=== PATIENT | male | born 1960 | race Caucasian/White ===

== ENCOUNTER 2019-12-17 00:49 | Outpatient (CLI) | payer BC, SELFPAY ==
[2019-12-18 18:47] LABS: SARS-CoV-2 RNA PCR Negative
== END 2019-12-17 00:50 | disposition home or self-care (01) ==
LOC: ANHCOVIDDT 00:49
PROVIDERS: PCP Family Medicine; Visit Provider Internal Medicine Gastroenterology
DX: Z01.812 Encounter for preprocedural laboratory examination (principal); Z11.59 Encounter for screening for other viral diseases
CPT/HCPCS: 87635; C9803; U0003

== ENCOUNTER 2019-12-20 00:40 | Day surgery (SDC) | payer BC, SELFPAY ==
[2019-12-09 15:18] VITALS: BMI 31.1
[2019-12-20 06:55] VITALS: BP 161/91; PULSE 67; RESP 18; TEMP 36.3; O2SAT 97
--- NOTE | 2019-12-20 07:07 | WPDANESEPPF ---
Anes - Initial Pre Proc Eval Procedure: Operation Date: 12/20/19 08:00 Proposed Procedures p Screening Colonoscopy - Efrain Ballard MD Date/Time: 12/20/19 07:07 Surgeon: Efrain Ballard MD Pre Op Diagnosis: neoplasm screening, family hx colon CA Patient Data Age: 59 Gender: M Height: 1.88 m Weight: 110 kg Allergies Allergy/AdvReac Type Severity Reaction Status Date / Time No Known Allergies Allergy Verified 12/20/19 06:56 Home Medications Medication Instructions Recorded Confirmed Type lisinopril 20 mg PO DAILY 12/09/19 12/09/19 History wlhkkyzbretx-njm-pwwx-FA-vit K 1 tablet PO DAILY 12/09/19 12/09/19 History [Adults Multivitamin] Patient hx anesthesia problems: none Family hx anesthesia problems: none PMFSH Past Medical History Medical History (Updated 12/20/19 @ 07:08 by Emiliano De Luna MD) HTN (hypertension) Obesity Family History Family History (Updated 12/25/17 @ 08:32 by DOCTOR UNKNOWN) Father Carcinoma of colon Mother Family history of malignant neoplasm of breast in first degree relative Social History Social History Smoking status: Never smoker Alcohol intake: current Anes - Eval Final PreProcedure Day of Procedure 12/20/19 07:07 Patient weight: obese Heart: regular rate and rhythm Lungs: clear to auscultation and normal air movement Airway: Mallampati scale class II Neurological: alert and oriented Last oral intake: >/= 8 hours ASA classification: II Emergent: no Anesthetic plan: proceed Anesthesia type and monitoring: general GIVS Informed Consent: The patient's anesthetic plan and its attendant risks and benefits were discussed with the patient/family/POA. Questions were solicited and answers provided to the satisfaction of the patient/family/POA.
[2019-12-20] MEDS: LACTATED RINGERS 1,000 ML 150 ML IV CONT (07:22)
--- NOTE | 2019-12-20 07:48 | WPDGICN ---
Assessment and Plan Assessment and plan (1) Family history of colon cancer in father: Code(s): Z80.0 - Family history of malignant neoplasm of digestive organs Status: Acute Assessment and Plan: Patient's father has had colon cancer. Plan is for patient to have surveillance colonoscopy now and perhaps a 5 year intervals in the future. High-fiber diet advised. GI Consult Note Consult date/time: 12/20/19 07:48 HPI: Abbe Cruz is a 59 year old male seen in evaluation at the request of Dr Daren Sin. Patient presents for screening colonoscopy. Patient reports that his own weight appetite bowel movements are normal. He denies abdominal pain. He has no blood in his stools. Family history is significant that his father had colon cancer. [facility] Past Medical History Medical History HTN (hypertension) Obesity Family History Family History Father Carcinoma of colon Mother Family history of malignant neoplasm of breast in first degree relative Social History Social History Smoking status: Never smoker Alcohol intake: current Meds Home Medications and Allergies Home Medications Medication Instructions Recorded Confirmed Type lisinopril 20 mg PO DAILY 12/09/19 12/20/19 History kktcnaqeuwsc-sjs-khqv-FA-vit K 1 tablet PO DAILY 12/09/19 12/20/19 History [Adults Multivitamin] Allergies Allergy/AdvReac Type Severity Reaction Status Date / Time No Known Allergies Allergy Verified 12/20/19 07:14 Vital Signs Vital Signs - 24 hr 12/20/19 06:55 Temperature 97.3 F L Pulse Rate 67 Respiratory Rate 18 Blood Pressure 161/91 H Pulse Oximetry 97 Exam Narrative: Exam Narrative: Physical exam reveals patient to be alert. Vital signs stable. HEENT exam unremarkable. Lungs are clear to auscultation and percussion. Heart is without murmur or extra sounds. Abdominal exam bowel sounds are present soft nontender with no hepatosplenomegaly. Digital external rectal exam normal.
[2019-12-20 08:14] VITALS: BP 132/85; PULSE 68; RESP 22; O2SAT 97
[2019-12-20 08:24] VITALS: BP 138/92; PULSE 69; RESP 20; O2SAT 96
[2019-12-20 08:34] VITALS: BP 131/86; PULSE 58; RESP 16; O2SAT 96
== END 2019-12-20 08:49 | disposition home or self-care (01) ==
PROVIDERS: PCP Family Medicine; Visit Provider Internal Medicine Gastroenterology
PROC: 0DJD8ZZ Inspection of Lower Intestinal Tract, Via Natural or Artificial Opening Endoscopic (ICD-10-PCS; CPT 45378; principal; 2019-12-20 08:00)
DX: Z12.11 Encounter for screening for malignant neoplasm of colon (principal); K57.30 Diverticulosis of large intestine without perforation or abscess without bleeding; K64.8 Other hemorrhoids; Z80.0 Family history of malignant neoplasm of digestive organs; I10 Essential (primary) hypertension; E66.9 Obesity, unspecified; Z68.31 Body mass index [BMI] 31.0-31.9, adult
CPT/HCPCS: 45378; J2704; J7120

== ENCOUNTER 2022-04-08 08:54 | Outpatient (CLI) | payer BC, SELFPAY ==
--- NOTE | 2022-04-08 09:01 | ECG_ITS ---
Measurements Intervals [place] Rate: 61 P: 16 MA: 195 QRS: -17 QRSD: 81 T: 4 QT: 398 QTc: 402 Interpretive Statements SINUS RHYTHM LEFT VENTRICULAR HYPERTROPHY MINIMAL Q WAVES- HIGH LATERAL LEADS BORDERLINE T WAVE ABNORMALITY- INFERIOR LEADS BASELINE ARTIFACT- I, II, III, AVR, AVL, AVF, V3-V6 BORDERLINE ECG NO PREVIOUS ECG AVAILABLE FOR COMPARISON Electronically Signed On 04-08-2022 9:34:47 [employer] by Dylan Chaves D.O.
== END 2022-04-08 08:55 | disposition home or self-care (01) ==
LOC: ANHSURGERY 08:59
PROVIDERS: PCP Family Medicine; Visit Provider Surgery
DX: K40.90 Unilateral inguinal hernia, without obstruction or gangrene, not specified as recurrent (principal); I10 Essential (primary) hypertension; Z01.818 Encounter for other preprocedural examination; R94.31 Abnormal electrocardiogram [ECG] [EKG]
CPT/HCPCS: 36415; 86850; 86900; 86901; 93005

== ENCOUNTER 2022-04-10 01:18 | Day surgery (SDC) | payer BC, SELFPAY ==
[2022-04-05 10:04] VITALS: BMI 31.5
--- NOTE | 2022-04-05 10:10 | PC.NURSE ---
Report to the Outpatient Waiting Room, entrance under the green pavilion located off [facility], at time 7:30 on date 04/10/22. Planned Procedure Time: 9:30. Time changes happen often and if your time is changed the preop area will call you the afternoon before. - You and your visitor will be asked to self-screen and do not enter if you have any COVID symptoms. - We encourage only one visitor and NO visitors under age 16 are allowed at this time. Your visitor will receive communication by the phone number that is given day of service. - The patient visitor is requested to social distance or may leave the building when not with patient due to restrictions. - A mask is OPTIONAL within the hospital. Patients may have clear liquids (water, carbonated beverages, clear teas, apple juice) until 3 hours prior to surgery (6:30) with a maximum of 20 ounces. - No food from midnight until time of surgery Take the following medications with a SIP of water the morning of surgery: NONE Medications to discontinue per physician: VITAMINS Date to take last dose: 04/06/22 Please no make-up, nail comoran, hairspray, perfume, deodorant, or body powder the day of surgery. No jewelry (including any body piercings) or valuables the day of surgery, leave them at home. Please take a shower or bath the night before, or the morning of, surgery with an antibacterial soap (HIBICLENS). Wear comfortable, loose fitting clothing. - Jewelry must be removed prior to entering the operating room. Rings and piercings that are not removed may be cut off. - The hospital will not accept responsibility for valuables. - Please leave all valuables, including medications, at home the day of surgery. If you are going home after surgery, a licensed coach tour driver must drive you home. - NO public transportation without another adult. - We recommend that an adult stay with you for 24 hours following discharge. - We also recommend that you do not drive, make important decision, drink alcoholic beverages, or take any drugs that were not prescribed by your health care provider for at least 24 hours after your discharge time. Follow any additional instructions given to you from your surgeon. If you or anyone in your household have experienced Covid symptoms in the past week, please notify your surgeon or the nurse liaison at the phone number below for possible testing. Telephone instructions given to PT - BRE ALVAREZ and asked if any additional questions and then verbalized understanding. Patient advised to call surgeon office or pre surgery nurse liaison [phone] if any additional questions.
[2022-04-10] VITALS (11 sets, daily range): BP systolic 114–139; BP diastolic 66–94; PULSE 58–79; RESP 11–17; TEMP 36.7–37.1; O2SAT 92–99
[2022-04-10] MEDS: ceFAZolin 2 GM/D5W 50 ML 2 GM/50 ML BAG IVPB (07:24)
[2022-04-10] MEDS: ACETAMINOPHEN 500 MG TABLET 1000 MG PO (07:59)
[2022-04-10] MEDS: LACTATED RINGERS 1,000 ML 30 ML IV CONT ×2 (08:10→11:06)
--- NOTE | 2022-04-10 08:46 | WPDHPUPDATE1 ---
History and Physical Update Update Date/Time: 04/10/22 08:46 History and Physical has been reviewed, including an updated exam of the patient. There are NO changes in the patient's condition. Risks, benefits, and alternatives have been discussed and questions answered. Patient agrees to proceed with procedure.
--- NOTE | 2022-04-10 08:56 | P.PNAN_ITS ---
Anes - Initial Pre Proc Eval Procedure: Operation Date: 04/10/22 09:30 Proposed Procedures p Laparoscopic Left Inguinal Hernia Repair with Mesh, Davinci Assisted - Sina Hernandez DO Date/Time: 04/10/22 08:56 Surgeon: Sina Hernandez DO Pre Op Diagnosis: Lt Ing Hernia Patient Data Age: 61 Gender: M Height: 1.88 m Weight: 111.2 kg Last Vital Signs Temp 98.0 F 04/10/22 08:20 Pulse 64 04/10/22 08:20 Resp 16 04/10/22 08:20 BP 118/94 H 04/10/22 08:20 Pulse Ox 94 04/10/22 08:20 O2 Del Method Room Air 04/10/22 08:20 Allergies Allergy/AdvReac Type Severity Reaction Status Date / Time No Known Allergies Allergy Verified 04/10/22 07:43 Home Medications Medication Instructions Recorded Confirmed Type lisinopril 20 mg tablet 20 mg PO DAILY 12/09/19 04/10/22 History multivit with minerals-iron 18 1 tablet PO DAILY 12/09/19 04/10/22 History mg-folic ac 400 mcg-vit K 25 mcg tablet (Adults Multivitamin) Patient hx anesthesia problems: none Family hx anesthesia problems: none Results Review: All pre-operative results and documents have been reviewed as part of the pre- operative evaluation. [facility] Past Medical History Medical History High cholesterol HTN (hypertension) Obesity Surgical History Surgical History H/O shoulder surgery Family History Family History Father Carcinoma of colon Mother Breast cancer Social History Social History Smoking status: Never smoker Alcohol intake: current Drinks per week: 2 Substance use: current Substance use type: marijuana Living arrangements: alone Spiritual care concerns: No Anes - Eval Final PreProcedure Day of Procedure 04/10/22 08:56 Patient weight: obese Heart: regular rate and rhythm Lungs: clear to auscultation Airway: Mallampati scale class II Neurological: alert and oriented Last oral intake: >/= 8 hours ASA classification: II Emergent: no Anesthetic plan: proceed Anesthesia type and monitoring: general ETT and standard monitoring Results Review: All pre-operative results and documents have been reviewed as part of the pre- operative evaluation. Informed Consent: The patient's anesthetic plan and its attendant risks and benefits were discussed with the patient/family/POA. Questions were solicited and answers provided to the satisfaction of the patient/family/POA.
[2022-04-10] MEDS: KETOROLAC 15 MG/ML VIAL (*BKC) IV PUSH (09:00)
[2022-04-10] MEDS: BUPIVACAINE/EPINEPHRINE 0.25% 50 ML VIAL 20 ML INFILTRATE (10:48)
--- NOTE | 2022-04-10 10:53 | W.PM.PROC2 ---
Procedure Note - Detailed Date of Procedure 04/10/22 Pre-op Diagnosis Left inguinal hernia Post-op Diagnosis Other (Bilateral direct inguinal hernias) Procedure Performed Laparoscopic bilateral inguinal hernia repair with mesh, da Jaqueline assisted Surgeon Sina Hernandez DO Anesthesia General and Local (0.5% bupivacaine with epinephrine) Indications This is a 61-year-old man who noticed a bulge in his left groin about 1 month ago. He denied any significant pain but did notice a bulge that did reduce when he pushed it back in. On exam he was found to have a reducible left inguinal hernia. Discussions were made with the patient about treatment options and decision was made to proceed with robotic assisted laparoscopic left inguinal hernia repair with mesh. Findings Upon entering the abdomen laparoscopically, the patient had evidence of a moderate-sized direct left inguinal hernia and he also had a small direct right inguinal hernia. Decision was made to proceed with bilateral hernia repair. A robotic transabdominal preperitoneal approach was utilized. Once a wide enough preperitoneal plane was created on each side I then placed a large 3DMax mid mesh overlying the myopectineal orifice on each side. No specimens were obtained for pathology. Description of Procedure Procedure as well as risks, benefits, and alternatives were discussed with the patient. Written consent was obtained and placed in chart prior to procedure. Patient was brought back to surgical suite. He was placed supine on operating table. Time-out was done to confirm patient and procedure. He was then intubated by Anesthesia Department. His abdomen was prepped and draped in sterile fashion using chlorhexidine prep. 0.5% bupivacaine with epinephrine was infiltrated at each location for incision. An 8 mm incision was made in the left lateral abdomen, and a 5 mm Optiview trocar was advanced through the abdominal layers under direct visualization. Once inside the abdominal cavity, carbon dioxide insufflation was used to create a pneumoperitoneum. A camera was inserted and the abdominal cavity was inspected. The patient was placed in slight Trendelenburg position. An 8 millimeter incision was made on the right lateral abdomen and an 8 millimeter trocar was inserted under direct visualization. Another 8 millimeter incision was made just superior to the umbilicus and an 8 millimeter trocar was inserted under direct visualization. The 5 mm port was then removed and this was replaced with another 8 mm robotic port. The robotic arms were brought up to the patient's bedside and secured to the ports. The camera and instruments were inserted. I then moved over to the robotic console and took control of the camera and instruments. After careful inspection of the abdominal cavity, I began scoring the peritoneum along the left lower quadrant using scissors with electrocautery. The preperitoneal plane was entered and this was carefully dissected caudally along the inferior epigastric vessels. Careful dissection with scissors with electrocautery and blunt dissection was used to continue this dissection. I dissected far enough laterally to allow for mesh placement, and also dissected medially to identify the pubic arch and Gustavo's ligament. The hernia sac was identified and carefully dissected posteriorly. The cord contents were also identified and the peritoneum was carefully dissected far enough posteriorly to allow for mesh placement. Once an adequate pocket was created, I then placed the mesh within the preperitoneal pocket and carefully unfolded it. The mesh was centered on the hernia defect with adequate overlap circumferentially. The inferior edge of the mesh was inspected to ensure that it was far enough away from the peritoneal edge. The mesh appeared in proper position overlying the entire myopectineal orifice. The mesh was secured using 3-0 Vicryl simple interrupted sutures in Gustavo's ligame
[2022-04-10] MEDS: oxyCODONE HCL (*CRX) 5 MG TAB IR PO (12:15)
== END 2022-04-10 14:39 | disposition home or self-care (01) ==
PROVIDERS: PCP Family Medicine; Visit Provider Surgery
PROC: 8E0Y4CZ Robotic Assisted Procedure of Lower Extremity, Percutaneous Endoscopic Approach (ICD-10-PCS; CPT 49650; principal; 2022-04-10 09:30)
DX: K40.20 Bilateral inguinal hernia, without obstruction or gangrene, not specified as recurrent (principal); I10 Essential (primary) hypertension; E78.00 Pure hypercholesterolemia, unspecified; E66.9 Obesity, unspecified; Z68.31 Body mass index [BMI] 31.0-31.9, adult
CPT/HCPCS: 49650; S2900; A9270; C1781; J0330; J0690; J1100; J1170; J1885; J2250; J2370; J2405; J2704; J2710; J3010; J7030; J7120

== ENCOUNTER 2025-03-28 01:53 | Day surgery (SDC) | payer MEDICARE, SELFPAY ==
[2025-03-16 11:20] VITALS: BMI 32.1
[2025-03-28 09:32] VITALS: BP 119/77; PULSE 86; RESP 18; TEMP 36.1; O2SAT 95
[2025-03-28] MEDS: LACTATED RINGERS 1,000 ML 150 ML IV CONT (09:50)
--- NOTE | 2025-03-28 10:49 | PM.IMHP ---
H&P: HPI History of Present Illness Date/Time: 03/28/25 10:49 Chief Complaint: family history of colon cancer Narrative: this is a 64-year-old man who presents for colonoscopy. His last colonoscopy was 5 years ago and was normal. He has a family history of colon cancer in his father. He denies any hematochezia or melena. Review of Systems Review of Systems: All systems reviewed & are unremarkable except as noted in HPI and below Constitutional: Constitutional: Denies chills, Denies fever(s), Denies headache(s) and Denies weight loss Eyes: Eyes: Denies change in vision ENT: Denies dizziness, Denies headache(s), Denies neck mass and Denies throat swelling Cardiovascular: Cardiovascular: Denies chest pain, Denies lightheadedness and Denies dyspnea Respiratory: Respiratory: Denies cough, Denies dyspnea and Denies wheezing Gastrointestinal: Gastrointestinal: Denies abdominal pain, Denies change in bowel habits, Denies nausea and Denies vomiting Genitourinary: Genitourinary: Denies hematuria and Denies dysuria Musculoskeletal: Musculoskeletal: Reports as per HPI Integumentary/Breasts: Skin/Breast: Reports as per HPI Neurologic: Denies dizziness and Denies headache(s) Allergic/Immunologic: Allergic/Immunologic: Denies throat swelling and Denies wheezing PMFSH Past Medical History Medical History Tinnitus Mixed hyperlipidemia Encounter for other specified surgical aftercare Obesity HTN (hypertension) Surgical History Surgical History H/O bilateral inguinal hernia repair 04/10/22 Laparoscopic bilateral inguinal hernia repair with mesh, da Jaqueline assisted H/O shoulder surgery Family History Family History Father Carcinoma of colon Mother Breast cancer Social History Social History Smoking status: Never smoker Alcohol intake: current Drinks per week: 3 Substance use: current Substance use type: marijuana Other substance usage details: smokes marijuana once a week Do You Feel Safe in your Home?: Yes Lack of Transportation: No Lack of Food: Never True Current Housing: I Have Housing Concerned About Future Housing: No Difficulty Paying Gas/Electric Bills: No Difficulty Paying for Meds: No Currently Unemployed: YES Education: Bachelor's Degree Difficulty w/ Childcare or Family Care: No Living arrangements: alone Occupation/Education: retired Gender identity (if verbalized by the patient): Male Sexual Orientation (if Verbalized by the Patient): Straight or Heterosexual Spiritual care concerns: No Meds Home Medications and Allergies Home Medications ?Medication ?Instructions ?Recorded ?Confirmed ?Type multivit with minerals-iron 18 1 tablet PO DAILY 12/09/19 03/28/25 History mg-folic ac 400 mcg-vit K 25 mcg tablet (Adults Multivitamin) lisinopril 20 mg tablet 20 mg PO DAILY #90 tabs 11/04/24 03/28/25 Rx amlodipine 5 mg tablet 5 mg PO DAILY #100 tabs 11/30/24 03/28/25 Rx psyllium husk 2.6 gram/4.1 gram 1 tsp PO DAILY #480 grams 11/30/24 03/28/25 Rx oral powder Allergies Allergy/AdvReac Type Severity Reaction Status Date / Time No Known Allergies Allergy Verified 03/28/25 09:31 Vital Signs Vital Signs - 24 hr 03/28/25 09:32 Temperature 97 F L Pulse Rate 86 Respiratory Rate 18 Blood Pressure 119/77 Pulse Oximetry 95 Oxygen Delivery Room Air Exam Const: General: no acute distress and alert Orientation/consciousness: patient oriented x3 HENMT: Head: normocephalic and atraumatic Ears: hearing grossly normal bilaterally Face/Nose/Sinus: Normal nares present Mouth: Yes Normal oral and palatal mucosa present Eyes: Periorbital: periorbital findings normal Sclera: sclerae normal EOM: EOMs intact bilaterally Neck: Neck: normal visual inspection, no lymphadenopathy and trachea midline Chest: Chest palpation & inspection: normal inspection of the chest Resp: Effort & Inspection: normal respiratory effort Auscultation: clear to auscultation bilaterally Cardio: Jugular venous distension: no JVD Rate: regular rate Rhythm: regular rhythm Heart sounds: S1 normal heart sound present and S2 normal heart sound present Peripheral pulses: Peripheral pulses 2+ throughout GI: Inspection: normal to inspection GI Palp: Yes Soft to palpation, No Tenderness to palpation present (GI), No Guarding due to palpation present (GI) and No Rebound tenderness present Percussion: Yes normal to percussion Auscultation: normal bowel sounds : General: Yes no CVA tenderness Back/Spine/Pelvis: Back: no CVA tenderness Neuro: General: patient oriented x3, no focal motor deficits and CN's II-XI intact bilaterally Cognition (Neuro): normal cognition Speech: normal speech Motor exam (neuro): 5/5 motor strength present throughout Extrem: General: capillary refill normal and no clubbing, cyanosis or edema Assessment and Plan Assessment and plan (1) Family history of colon cancer in father: Code(s): Z80.0 - Family history of malignant neoplasm of digestive organs Status: Acute Assessment and Plan: I have recommended colonoscopy. I have discussed the procedure, risks, benefits, and alternatives. Questions were answered. Patient is agreeable to proceed.
--- NOTE | 2025-03-28 10:50 | WPDANESEPPF ---
Anes - Initial Pre Proc Eval Procedure: Operation Date: 03/28/25 10:30 Proposed Procedures p Screening Colonoscopy - Sina Hernandez DO Date/Time: 03/28/25 10:50 Surgeon: Sina Hernandez DO Pre Op Diagnosis: Neoplasm screening Patient Data Age: 64 Gender: M Height: 1.88 m Weight: 108.9 kg Last Vital Signs Temp 36.1 C L 03/28/25 09:32 Pulse 86 03/28/25 09:32 Resp 18 03/28/25 09:32 BP 119/77 03/28/25 09:32 Pulse Ox 95 03/28/25 09:32 O2 Del Method Room Air 03/28/25 09:32 Allergies Allergy/AdvReac Type Severity Reaction Status Date / Time No Known Allergies Allergy Verified 03/28/25 09:31 Home Medications ?Medication ?Instructions ?Recorded ?Confirmed ?Type multivit with minerals-iron 18 1 tablet PO DAILY 12/09/19 03/28/25 History mg-folic ac 400 mcg-vit K 25 mcg tablet (Adults Multivitamin) lisinopril 20 mg tablet 20 mg PO DAILY #90 tabs 11/04/24 03/28/25 Rx amlodipine 5 mg tablet 5 mg PO DAILY #100 tabs 11/30/24 03/28/25 Rx psyllium husk 2.6 gram/4.1 gram 1 tsp PO DAILY #480 grams 11/30/24 03/28/25 Rx oral powder Patient hx anesthesia problems: none Family hx anesthesia problems: none Results Review: All pre-operative results and documents have been reviewed as part of the pre-operative evaluation. [facility] Past Medical History Medical History Tinnitus Mixed hyperlipidemia Encounter for other specified surgical aftercare Obesity HTN (hypertension) Surgical History Surgical History H/O bilateral inguinal hernia repair 04/10/22 Laparoscopic bilateral inguinal hernia repair with mesh, da Jaqueline assisted H/O shoulder surgery Family History Family History Father Carcinoma of colon Mother Breast cancer Social History Social History Smoking status: Never smoker Alcohol intake: current Drinks per week: 3 Substance use: current Substance use type: marijuana Other substance usage details: smokes marijuana once a week Do You Feel Safe in your Home?: Yes Lack of Transportation: No Lack of Food: Never True Current Housing: I Have Housing Concerned About Future Housing: No Difficulty Paying Gas/Electric Bills: No Difficulty Paying for Meds: No Currently Unemployed: YES Education: Bachelor's Degree Difficulty w/ Childcare or Family Care: No Living arrangements: alone Occupation/Education: retired Gender identity (if verbalized by the patient): Male Sexual Orientation (if Verbalized by the Patient): Straight or Heterosexual Spiritual care concerns: No Anes - Eval Final PreProcedure Day of Procedure 03/28/25 10:50 Patient weight: obese Heart: regular rate and rhythm Lungs: clear to auscultation Airway: Mallampati scale class II Neurological: alert and oriented Last oral intake: >/= 8 hours ASA classification: III Emergent: no Anesthetic plan: proceed Anesthesia type and monitoring: general GIVS and standard monitoring Results Review: All pre-operative results and documents have been reviewed as part of the pre-operative evaluation. Informed Consent: The patient's anesthetic plan and its attendant risks and benefits were discussed with the patient/family/POA. Questions were solicited and answers provided to the satisfaction of the patient/family/POA.
[2025-03-28 11:09] VITALS: BP 103/68; PULSE 73; RESP 22; O2SAT 96
[2025-03-28 11:19] VITALS: BP 98/68; PULSE 73; RESP 20; O2SAT 96
[2025-03-28 11:29] VITALS: BP 119/87; PULSE 63; RESP 20; O2SAT 96
== END 2025-03-28 11:47 | disposition home or self-care (01) ==
PROVIDERS: PCP Family Medicine; Visit Provider Surgery
PROC: 0DJD8ZZ Inspection of Lower Intestinal Tract, Via Natural or Artificial Opening Endoscopic (ICD-10-PCS; CPT 45378; principal; 2025-03-28 10:30)
DX: Z12.11 Encounter for screening for malignant neoplasm of colon (principal); K57.30 Diverticulosis of large intestine without perforation or abscess without bleeding; Z80.0 Family history of malignant neoplasm of digestive organs; F12.90 Cannabis use, unspecified, uncomplicated; E66.9 Obesity, unspecified; Z68.30 Body mass index [BMI] 30.0-30.9, adult
CPT/HCPCS: G0105; J2704; J7120